=== PATIENT | female | born 1960 | race Caucasian/White ===

== ENCOUNTER 2017-02-19 15:39 | Emergency (ER) | payer SELFPAY ==
[~2017-02-19] VITALS: Wt 77.4 kg
[2017-02-19] MEDS ORDERED: LIDOCAINE 1%/EPI 30 ML INJ INJ STA (16:53)
[2017-02-19] MEDS ORDERED: CEPH500C PO (16:55)
--- NOTE | 2017-02-19 16:58 | ERD ---
ER Documentation Chief Complaint Chief Complaint left foot lac HPI 56-year-old female presents with laceration to her posterior left foot from getting part of a metal piece of the door since 10a. Cannot remember her last tetanus ROS All systems reviewed and are negative except as per history of present illness. Medications Home Meds Active Scripts Cephalexin* (Cephalexin*) 500 Mg Capsule, 500 MG PO Q6, #20 CAP Prov:MICHELLBrigetteCAROL PA-C 02/19/17 Physical Exam Vitals Vital Signs Date Time Temp Pulse Resp B/P Pulse Ox O2 Delivery O2 Flow Rate FiO2 02/19/17 15:42 98.1 89 18 138/78 99 Physical Exam Const: [] Head: Atraumatic Eyes: Normal Conjunctiva ENT: Normal External Ears, Nose and Mouth. Neck: Full range of motion..~ No meningismus. Resp: Clear to auscultation bilaterally Cardio: Regular rate and rhythm, no murmurs Abd: Soft, non tender, non distended. Normal bowel sounds Skin: 2.5cm flap laceration posterior left foot Back: No midline or flank tenderness Ext: No cyanosis, or edema Neur: Awake and alert Psych: Normal Mood and Affect Results 24 hrs Current Medications Medications (Trade) Dose Ordered Sig/Kaylene Route PRN Reason Start Time Stop Time Status Last Admin Dose Admin Diphtheria/ Tetanus/Acell Pertussis (Adacel) 0.5 ml ONCE ONCE IM* 02/19/17 17:00 02/19/17 17:01 Lidocaine/ Epinephrine (Xylocaine 1%/ Epi (Pf)) 30 ml ONCE STAT INJ 02/19/17 16:53 02/19/17 16:54 DC Procedures/MDM 56-year-old female patient presents to the ER with a superficial laceration on left foot My clinical suspicion for fracture, nerve/tendon/arterial injury is low due to physical examination. In the ED, patient was given TDAP and prepared for wound closure, listed below.hemodynamically stable and neurovascularly intact. Prescription was given. Discussed to return to this facility or primary care physician in 10 days for suture removal. Discussed to return to the ER for any signs of infection or if condition worsens. Patient expressed agreement and understanding of the plan. PROCEDURE NOTE: Consent was obtained. Patient was positioned appropriately. Copious amount of normal saline was used for irrigation. Wound was cleansed with Betadine. Approximately 5cc of lidocaine with epinephrine was used as a local anesthetic. Patient was sterile draped with wound exposed. Wound was closed with good approximation with 4-0 simple interrupted sutures. Procedure tolerated without complications. Wound dressed with bacitracin and sterile gauze. DISPOSITION: hemodynamically stable and neurovascularly intact pre and post treatment. Prescription was given. Discussed to return to this facility or primary care physician in [] days for suture removal. Discussed to return to the ER for any signs of infection or if condition worsens. Patient expressed agreement and understanding of the plan. Departure Diagnosis: Primary Impression: Laceration Condition: Stable Patient Instructions: Laceration, Foot Additional Instructions: SUTURE REMOVAL:CONSULTE A MELE PANDYA PARA SERGIOAR MELE FENTON 10 peoples. CAROL BURK PA-C Feb 19, 2017 16:58
[2017-02-19] MEDS ORDERED: DIPHTH/TET/ACEL PERTUSS (ADULT) 0.5 ML VIAL IM* ONE (17:00)
== END 2017-02-19 18:16 | disposition home or self-care (01) ==
LOC: FTE 15:39
DX: S91.312A Laceration without foreign body, left foot, initial encounter (principal); W22.8XXA Striking against or struck by other objects, initial encounter; Y92.9 Unspecified place or not applicable; Z23 Encounter for immunization
CPT/HCPCS: 90471; 90715

== ENCOUNTER 2017-02-21 09:59 | Emergency (ER) | payer SELFPAY ==
[~2017-02-21] VITALS: Ht 165.1 cm; Wt 78.1 kg
[~2017-02-21 09:59] MED LIST: CEPH500C PO
[2017-02-21 10:01] VITALS: Ht 165.1 cm; Wt 78.1 kg
--- NOTE | 2017-02-21 13:22 | ERD ---
ER Documentation Chief Complaint Chief Complaint Pt presents with L foot lac with erythema X 2-3 days. HPI Otherwise healthy 56-year-old male presenting at 2-3 days status post left foot laceration. Patient describes erythema. Denies pain, numbness, tingling, loss of range of motion, fever, chills, vomiting, abdominal pain. Patient has taken 1 dose of the antibiotics 12 hours ago. Has not taken any other medications. Patient has no other complaints and describes no other associated manifestations. Nursing notes have been reviewed and are consistent with history given. ROS All systems reviewed and are negative except as per history of present illness. Medications Home Meds Active Scripts Cephalexin* (Cephalexin*) 500 Mg Capsule, 500 MG PO Q6, #20 CAP Prov:CAROL BURK PA-C 02/19/17 PMhx/Soc Medical and Surgical Hx: pt denies Medical Hx, pt denies Surgical Hx Hx Alcohol Use: No Hx Substance Use: No Hx Tobacco Use: No Physical Exam Vitals Vital Signs Date Time Temp Pulse Resp B/P Pulse Ox O2 Delivery O2 Flow Rate FiO2 02/21/17 10:01 98.7 78 14 121/78 98 Physical Exam Const: Overweight. No acute distress. Skin: Erythematous left ankle extending 1 cm from the site. Well- appearing wound. Mild maceration at the edges. No tenderness palpation. Full range of motion. No streaking. Pulm: Good air movement in upper and lower respiratory tracts. No dyspnea, stridor, tripoding or drooling. Clear to auscultation bilaterally. Cardio: Regular rate and rhythm. No JVD grossly observed. Radial and posterior tibial pulses 2+ bilaterally. No cyanosis. Capillary refill less than 2 seconds. MS: Normal motor strength, normal tone with gross examination. Back: No midline or flank tenderness. Neur: Neurovascularly intact bilaterally. Awake, alert and oriented x3. Procedures/MDM 56-year-old female with no past medical conditions presents 3 days status post laceration to the left posterior ankle. Wound is well-appearing. Mild erythema. No discharge, induration or other signs of infection. I have low suspicion for spreading cellulitis, osteomyelitis, lymphangitis, or other SBI. I recommended that the patient continue antibiotic treatment and be reevaluated within the next 1 day. [employer] was the nurse. No indication for further workup or IV antibiotics at this time. I have spoke with the patient regarding their condition and future management. They have verbally responded that they understand their status and treatment plan. The patients vitals are stable, and their current condition is appropriate for discharge. The patient will be given discharge instructions with return precautions. Departure Diagnosis: Primary Impression: Laceration Condition: Stable Patient Instructions: Laceration, Foot Additional Instructions: Keeley un seguimiento con teresa PCP dentro de los prximos 1 da para cole evaluacin ms completa y cole posible derivacin a un especialista. Devuelva el departamento de emergencia inmediatamente si los sntomas empeoran o cambian. Si tiene alguna pregunta con respecto a los medicamentos, consulte con teresa farmac utico o con nosotros antes de salir. Si se producen reacciones adversas mientras shanthi kyra medicamentos, suspenda el tratamiento y regrese inmediatamente al servicio de urgencias. [place] kyra medicamentos segn las indicaciones y complete el curso completo del tratamiento. MICHAEL DURAN PA-C Feb 21, 2017 13:22
== END 2017-02-21 11:33 | disposition home or self-care (01) ==
LOC: FTE 09:59
DX: S91.312A Laceration without foreign body, left foot, initial encounter (principal); X58.XXXA Exposure to other specified factors, initial encounter; Y92.9 Unspecified place or not applicable
CPT/HCPCS: 99282

== ENCOUNTER 2017-02-24 10:23 | Emergency (ER) | payer SELFPAY ==
[~2017-02-24] VITALS: Wt 81.2 kg
--- NOTE | 2017-02-24 12:18 | ERD ---
ER Documentation Chief Complaint Chief Complaint WOUND CHECK ON LEFT HEEL HPI 56-year-old female, status post laceration repair 5 days ago on the left heel, returns to the emergency department for evaluation of an infected wound. The patient refers feeling much better, no fever, no chills, no purulent discharge. The pain is throbbing, 3/10, worse when ambulating. Refers good adherence to antibiotics, no side effects. ROS SYSTEMIC symptoms: no fever, chills, no night sweats, no weight loss EYE symptoms: No blurred vision, no eye discharge OTOLARYNGEAL symptoms: No hearing loss. No ear pain, no sore throat CARDIOVASCULAR symptoms: No chest pain or discomfort, no palpitations. PULMONARY symptoms: No dyspnea, no cough, no wheezing. GASTROINTESTINAL symptoms: No abdominal pain, no nausea, no vomiting, no diarrhea MUSCULOSKELETAL symptoms: No arthralgias, no muscle aches. NEUROLOGY symptoms: No confusion, no syncope, no numbness or tingling. SKIN: No rashes Medications Home Meds Active Scripts Cephalexin* (Cephalexin*) 500 Mg Capsule, 500 MG PO Q6, #20 CAP Prov:CAROL BURK PA-C 02/19/17 PMhx/Soc Medical and Surgical Hx: pt denies Medical Hx, pt denies Surgical Hx Hx Alcohol Use: No Hx Substance Use: No Hx Tobacco Use: No Smoking Status: Never smoker Physical Exam Vitals Vital Signs Date Time Temp Pulse Resp B/P Pulse Ox O2 Delivery O2 Flow Rate FiO2 02/24/17 10:33 98.0 68 18 121/73 98 Physical Exam Patient is in no acute distress, vital signs stable. Alert and fully oriented. EYES: PERRLA, EOMI, Sclera and conjunctiva appear normal. EARS: Canals clear, tympanic membranes WNL THROAT: Normal oropharynx. NECK: Supple, No lymphadenopathy. Full ROM without pain or tenderness. HEART: RRR, no rubs, murmurs, clicks or gallops. LUNGS: Clear to auscultation. ABDOMEN: Soft, non-tender without masses or hepatosplenomegaly. EXTREMITIES: Left heel: Wound sutured, mild dehiscence and erythema on the distal edge. No warmth, fluctuation. Neurovascular exam intact. BACK: Full ROM, no deformity, normal back exam NEURO: Cranial nerves grossly intact, no motor or sensory deficit Procedures/MDM 56y/o female patient, status post suture repair of the left heel 5 days ago with subsequent local infection, returns to the emergency department for evaluation. The patient refers feeling much better. Physical examination showed wound with local minor infection. Low suspicion for abscess, cellulitis , erysipelas. No systemic infection patient. Physical examination and clinical presentation consistent most likely with infected laceration of the left heel improving. During the ED course the patient remained stable, no new complaints. Results and clinical impression discussed with patient who agrees with management. The patient is stable to be treated outpatient and will be discharged home, the patient was instructed to return here for evaluation in 5 days. The patient was instructed to follow up with the primary care provider in the next 48h. If symptoms persist, worsen or new symptoms develop, then patient should return to the ED immediately. Instructions explained and given directly by me to the patient in [place] with acknowledgment and demonstrated understanding. Disclaimer: Inadvertent spelling and grammatical errors are likely due to EHR/ dictation software use and do not reflect on the overall quality of patient care. Also, please note that the electronic time recorded on this note does not necessarily reflect the actual time of the patient encounter. Departure Diagnosis: Primary Impression: Encounter for wound re-check Condition: Stable Additional Instructions: Call your primary care doctor TOMORROW for an appointment during the next 1-2 days. See the doctor sooner or return here if your condition worsens before your appointment time. Thank you very much for allowing us to participate in your care. Your health and safety is our top priority at [facility]. Have prescriptions filled and follow precisely the directions on the label. Follow-up with primary care provider during the next 4 days and bring all the information and medications prescribed. If illness has not improved in 2 days, then make an appointment with primary care provider. If the provider is unavailable, return to the Emergency Department immediately. KEVIN GREEN MD Feb 24, 2017 12:18
== END 2017-02-24 12:40 | disposition home or self-care (01) ==
LOC: FTE 10:23
DX: Z48.01 Encounter for change or removal of surgical wound dressing (principal)
CPT/HCPCS: 99281